=== PATIENT | female | born 1945 ===

== ENCOUNTER 2021-10-25 08:47 | Inpatient (IN) | payer OTHER ==
[~2021-10-25] VITALS: Ht 154.9 cm; Wt 54.4 kg
[~2021-10-25 08:47] MED LIST: CARDURA1 MG PO; DILTIAZEM ER300 MG PO; GLIPIZ PO; GLUCOTROL XL5 MG PO; GLUMETZA500 MG PO; JANUVIA100 MG PO; ZESTRIL40 M1 PO
[2021-10-26] MEDS ORDERED: GLIPIZIDE-METF1 EAC2 (08:19)
== END 2021-10-26 13:05 | disposition home or self-care (01) | DRG 735 ==
LOC: CIR.AMB 08:47 → SURH 09:30 → EDSTATUS 09:30 → CIR.AMB 09:30 → O/R 13:46 → OB/GYN 13:46 → CIR.AMB 15:35 → OB/GYN 16:31 → CIR.AMB 21:30 → OB/GYN 10-26 13:05
PROVIDERS: Colon & Rectal Surgery; ADMIT Obstetrics & Gynecology Gynecologic Oncology; ATTEND Obstetrics & Gynecology Gynecologic Oncology
PROC: 0UT74ZZ Resection of Bilateral Fallopian Tubes, Percutaneous Endoscopic Approach (ICD-10-PCS; 2021-10-25)
PROC: 0UT24ZZ Resection of Bilateral Ovaries, Percutaneous Endoscopic Approach (ICD-10-PCS; 2021-10-25)
PROC: 0DNW4ZZ Release Peritoneum, Percutaneous Endoscopic Approach (ICD-10-PCS; 2021-10-25)
PROC: 0TN74ZZ Release Left Ureter, Percutaneous Endoscopic Approach (ICD-10-PCS; 2021-10-25)
PROC: 0TN64ZZ Release Right Ureter, Percutaneous Endoscopic Approach (ICD-10-PCS; 2021-10-25)
PROC: 3E1M38Z Irrigation of Peritoneal Cavity using Irrigating Substance, Percutaneous Approach (ICD-10-PCS; 2021-10-25)
PROC: 07TC4ZZ Resection of Pelvis Lymphatic, Percutaneous Endoscopic Approach (ICD-10-PCS; principal; 2021-10-25 07:00)
PROC: 0DBW4ZZ Excision of Peritoneum, Percutaneous Endoscopic Approach (ICD-10-PCS; 2021-10-25 07:00)
DX: D27.1 Benign neoplasm of left ovary (principal); Z20.822 Contact with and (suspected) exposure to COVID-19